=== PATIENT | female | born 1955 | race Caucasian/White ===

== ENCOUNTER 2021-07-30 10:40 | Emergency (ER) | payer OTHER ==
[2021-07-30 11:46] LABS: PTT,PARTIAL THROMBOPLSTIN TIME 23.6 SEC (25.6-32.8)
[2021-07-30 11:50] LABS: CHLORIDE,CL 107 mmol/L (98-107); SODIUM,NA 143 mmol/L (136-145)
[2021-07-30 11:55] LABS: ANION GAP 12.3 mmol/L (5-15)
[2021-07-30 12:03] LABS: BARBITURATE SCREEN,URINE NEGATIVE (NEGATIVE); BENZODIAZEPINES SCREEN,URINE NEGATIVE (NEGATIVE); METHAMPHETAMINE SCREEN, URINE NEGATIVE (NEGATIVE); THC SCREEN,URINE 50 NG/ML NEGATIVE (NEGATIVE)
[2021-07-30 12:04] LABS: BUPRENORPHINE SCREEN,URINE NEGATIVE (NEGATIVE)
== END 2021-07-30 13:13 | disposition home or self-care (01) ==
LOC: VM.ED 10:40
DX: M25.512 Pain in left shoulder (principal); R51.9 Headache, unspecified; V89.2XXA Person injured in unspecified motor-vehicle accident, traffic, initial encounter
CPT/HCPCS: 36415; 70450; 80053; 80305-QW; 80307; 81001; 83605; 83690; 85025; 85610; 85730; 99283; 99285-25

== ENCOUNTER 2025-04-26 09:09 | Emergency (ER) | payer MEDICARE, OTHER | END 2025-04-26 10:03 | disposition home or self-care (01) | LOC: VM.ED 09:09 | DX: F41.1 Generalized anxiety disorder (principal); F43.0 Acute stress reaction | CPT/HCPCS: 99283; 99284; A9270-GY ==